=== PATIENT | female | born 1995 ===

== ENCOUNTER 2017-06-26 17:33 | Emergency (ER) | payer OTHER, MEDICAID ==
[2017-06-26 18:16] VITALS: BP 128/76
--- NOTE | 2017-06-26 20:01 | UC ---
Respiratory Complaint HPI - HPI Summary HPI Summary: Patient presents to the with cough which has not improved with tessalon and prednisone. She was seen in our clinic yesterday and given these medications. Cough has been present x 1 week which has not improved. Denies sputum production. Denies fevers, sweats and chills. Otherwise healthy. Takes no medications. Has ashtma - but takes albuterol only as needed. Denies SALCIDO, sinus pressure or congestion. - History of Current Complaint Hx Obtained From: Patient Hx Last Menstrual Period: 05/31/17 ?: No Onset/Duration: Sudden Onset Timing: Constant Severity Initially: Moderate Severity Currently: Moderate Pain Intensity: 0 Pain Scale Used: 0-10 Numeric Character: Cough: Nonproductive Aggravating Factors: Deep Breaths Associated Signs And Symptoms: Positive: Negative - Risk Factors Pulmonary Embolism Risk Factors: Negative Cardiac Risk Factors: Negative Pseudomonas Risk Factors: Negative Tuberculosis Risk Factors: Negative <Tess Mata - Last Filed: 06/29/17 11:59> <Kenia Oconnell - Last Filed: 07/01/17 10:31> - History of Current Complaint Chief Complaint: UCRespiratory Stated Complaint: RECHECK URI Time Seen by Provider: 06/26/17 19:04 - Allergies/Home Medications Allergies/Adverse Reactions: Allergies Allergy/AdvReac Type Severity Reaction Status Date / Time Bee Venom Allergy Anaphylatic Verified 06/26/17 18:16 Shock Home Medications: Home Medications Benzonatate CAP* [Tessalon 100 MG CAP*] 100 mg PO TID PRN 06/26/17 [History Confirmed 06/26/17] Fluticasone HFA 110 mcg(NF) [Flovent HFA 110 mcg(NF)] 1 puff INH BID 06/26/17 [ History Confirmed 06/26/17] predniSONE TAB* [Deltasone TAB*] 20 mg PO DAILY 06/26/17 [History Confirmed ] PMH/Surg Hx/FS Hx/Imm Hx Previously Healthy: Yes - Surgical History Surgical History: None Surgery Procedure, Year, and Place: denies - Social History Occupation: Employed Full-time Alcohol Use: None Substance Use Type: None Smoking Status (MU): Never Smoked Tobacco - Immunization History Most Recent Influenza Vaccination: no <Tess Mata - Last Filed: 06/29/17 11:59> Review of Systems Constitutional: Negative Skin: Negative Respiratory: Cough Cardiovascular: Negative Genitourinary: Negative Motor: Negative Neurovascular: Negative Musculoskeletal: Negative Neurological: Negative Is Patient Immunocompromised?: No All Other Systems Reviewed And Are Negative: Yes <Tess Mata - Last Filed: 06/29/17 11:59> Physical Exam Triage Information Reviewed: Yes Appearance: Well-Appearing, No Pain Distress, Well-Nourished Vital Signs: Initial Vital Signs Temp 97.9 F 06/26/17 18:13 Pulse 86 06/26/17 18:13 Resp 17 06/26/17 18:13 BP 128/76 06/26/17 18:13 Pulse Ox 97 06/26/17 18:13 Vital Signs Reviewed: Yes Eye Exam: Normal Eyes: Positive: Conjunctiva Clear Neck exam: Normal Neck: Positive: Supple, No Lymphadenopathy Respiratory Exam: Normal Respiratory: Positive: Chest non-tender, Wheezing - left lung base <Tess Mata - Last Filed: 06/29/17 11:59> Vital Signs: Initial Vital Signs Temp 97.9 F 06/26/17 18:13 Pulse 86 06/26/17 18:13 Resp 17 06/26/17 18:13 BP 128/76 06/26/17 18:13 Pulse Ox 97 06/26/17 18:13 <Kenia Oconnell - Last Filed: 07/01/17 10:31> Diagnostic Evaluation - Laboratory O2 Sat by Pulse Oximetry: 97 <Tess Mata - Last Filed: 06/29/17 11:59> Respiratory Course/Dx - Course Course Of Treatment: Patient presents to the with cough not improved with medication. She is requesting cough medication. Robitussin with codeine given for relief. She is OK for discharge and return precautions given. Continue with all other medications as directed. - Differential Dx/Diagnosis Differential Diagnosis/HQI/PQRI: Bronchitis, Laryngitis, Sinusitis Provider Diagnoses: Cough <Tess Mata - Last Filed: 06/29/17 11:59> Discharge <Tess Mata - Last Filed: 06/29/17 11:59> <Kenia Oconnell - Last Filed: 07/01/17 10:31> - Discharge Plan Condition: Stable Disposition: HOME Prescriptions: guaiFENesin/CODIEN 100MG-10MG* [Robitussin AC 100Mg-10Mg*] 10 ml PO BEDTIME PRN #[id number] udc MDD 40 PRN Reason: Cough Patient Education Materials: Acute Cough (ED) Referrals: BRANDON Mack [Primary Care Provider] - Additional Instructions: Humidifier in the home will help. Tylenol for discomfort. Take all medications as directed. Symptoms should resolve in 1-3 weeks. If symptoms become worse, please come back to or go to the ED. Honey and lemon hot tea Rest plenty of fluids. Robitussin with codeine only as prescribed Continue to take the prednisone as prescribed Cough drops and cepacol tabs (drops) will help as well Attestation Statement User Type: Provider - I was available for consult. This patient was seen by the [facility]. The patient was not presented to, seen by, or examined by me. -Tatiana <Kenia Oconnell - Last Filed: 07/01/17 10:31>
== END 2017-06-26 19:19 | disposition home or self-care (01) ==
LOC: UCCORT 17:33
DX: R05 Cough (principal); J45.909 Unspecified asthma, uncomplicated
CPT/HCPCS: 99212; G0463